=== PATIENT | male | born 1995 | race Caucasian/White ===

== ENCOUNTER 2023-03-21 12:40 | Emergency (ER) | payer BC ==
[~2023-03-21] VITALS: Ht 172.7 cm; Wt 83.9 kg
--- NOTE | 2023-03-21 12:42 | NUR ---
Dr Osorio at the bedside for MSE.
[2023-03-21 13:12] LABS: HEMATOCRIT 41.8 % (36.7-47.1); MEAN CORPUSCULAR VOLUME 87.4 fL (73.0-96.2); PLATELET COUNT (AUTO) 338 K/uL (152-348)
--- NOTE | 2023-03-21 13:21 | NUR ---
DOLORES consult requested for a patient for medication assisted treatment resources. Patient is a 27 year old male that presents with anxious mood and congruent affect. Patient is alert and oriented X2 and appears paranoid and disoriented. Patient states his primary contact is his mother, Shefali who lives in [place]. SW was unable to ascertain the patient's mother's contact information. Patient states he currently resides at a sober [place] [address] ([phone]). Patient states he is currently unemployed and does not drive. Patient states he has a history of substance abuse and recently used fentanyl. The toxicology report is still pending. Patient states he has a history of anxiety and is seeing a therapist, Beronica, two to three times a [place] [address] ([phone]). DOLORES provided the patient with medication assisted treatment resources for [place] [address] ([phone]), [facility] [address] [facility] [address] ([phone]), and [place] [address] ([phone]). Patient appears unmotivated for treatment. Patient denies suicidal or homicidal ideations and denies auditory or visual hallucinations. Patient states his plan for discharge is to take an Uber back to the sober [place] [address] ([phone]).
[2023-03-21 13:34] LABS: ALANINE AMINOTRANSFERASE 47 U/L (16-63); ALKALINE PHOSPHATASE 60 U/L (50-136); ASPARTATE AMINOTRANSFERASE 17 U/L (15-37); BILIRUBIN,DIRECT 0.1 mg/dL (0.0-0.2); BILIRUBIN,TOTAL 0.4 mg/dL (0.2-1.0); CARBON DIOXIDE 26 mmol/L (21-32); CHLORIDE 102 mmol/L (98-107); CREATININE 0.9 mg/dL (0.6-1.3); GLUCOSE 102 mg/dL (74-106); POTASSIUM 4.3 mmol/L (3.5-5.1); TOTAL PROTEIN, SERUM 8.2 g/dL (6.4-8.2); UREA NITROGEN, BLOOD 10 mg/dL (7-18)
[2023-03-21 13:41] LABS: ETHANOL < 3 MG/DL (0-0)
[2023-03-21 13:43] LABS: ACETAMINOPHEN < 2.0 ug/mL (10-30)
--- NOTE | 2023-03-21 13:57 | NUR ---
Sent urine to lab for UA. Safety measures in place. Will continue to monitor.
[2023-03-21 14:03] LABS: *BILIRUBIN,URIN NEGATIVE (NEGATIVE); *BLOOD, URINE NEGATIVE (NEGATIVE); *CLARITY,URINE CLEAR (CLEAR); *COLOR,URINE YELLOW (YELLOW); *KETONES,URINE NEGATIVE (NEGATIVE); *UROBILINOGEN,URINE 0.2 E.U./dl (NORMAL); LEUKOCYTE ESTERASE ,URINE NEGATIVE (NEGATIVE); NITRITE, URINE NEGATIVE (NEGATIVE); PH,URINE 7.5 (5.0-8.0); UGLUCOSE NEGATIVE (NEGATIVE)
[2023-03-21 14:18] LABS: *AMPHETAMINE, URINE NEGATIVE (NEGATIVE); *CANNABINOID, URINE NEGATIVE (NEGATIVE); *COCCAINE, URINE NEGATIVE (NEGATIVE); *PHENCYCLIDINE SCREEN,URINE NEGATIVE (NEGATIVE)
--- NOTE | 2023-03-21 14:39 | NUR ---
Note undone in [facility] - 03/21/23 at 1444 by EASJANA Pt left AMA w/o signing AMA form. Addendum: 03/21/23 at 1439 by EASUR Amendment undone in [facility] - 03/21/23 at 1444 by EASUR Pt did not have IV site. Addendum: 03/21/23 at 1443 by EASUR Amendment undone in [facility] - 03/21/23 at 1444 by INDU Patient eloped from facility. ER physician notified.
--- NOTE | 2023-03-21 14:39 | NUR ---
Patient eloped from facility. ER physician notified.
[2023-03-21 14:40] VITALS: BP 127/74
== END 2023-03-21 14:41 | disposition left against medical advice (07) ==
LOC: ER 12:40
DX: F31.9 Bipolar disorder, unspecified (principal); F19.90 Other psychoactive substance use, unspecified, uncomplicated
CPT/HCPCS: 36415; 85025; A4663; G0480